=== PATIENT | male | born 1960 ===

== ENCOUNTER 2022-03-18 13:44 | Outpatient (RCR) | payer MEDICARE, OTHER | END 2022-03-19 | LOC: PT 13:44 | PROVIDERS: ATTEND Specialist | DX: M17.12 Unilateral primary osteoarthritis, left knee (principal); S83.222D Peripheral tear of medial meniscus, current injury, left knee, subsequent encounter; S83.412A Sprain of medial collateral ligament of left knee, initial encounter ==

== ENCOUNTER → 2022-04-16 | Outpatient (RCR) | payer OTHER | LOC: PT 03-22 14:11 | PROVIDERS: ATTEND Specialist | DX: M17.12 Unilateral primary osteoarthritis, left knee (principal); S83.222D Peripheral tear of medial meniscus, current injury, left knee, subsequent encounter; S83.412A Sprain of medial collateral ligament of left knee, initial encounter ==

== ENCOUNTER 2022-05-02 13:54 | Outpatient (RCR) | payer OTHER | END 2022-05-17 | LOC: PT 13:54 | PROVIDERS: ATTEND Specialist | DX: M17.12 Unilateral primary osteoarthritis, left knee (principal); S83.222D Peripheral tear of medial meniscus, current injury, left knee, subsequent encounter; S83.412A Sprain of medial collateral ligament of left knee, initial encounter ==